=== PATIENT | female | born 1965 ===

== ENCOUNTER 2021-03-13 08:56 | Outpatient (CLI) | payer OTHER, SELFPAY ==
[2021-03-13 10:48] LABS: SARS-CoV-2 RNA PCR Negative (Negative)
[2021-03-13 11:28] LABS: SARS-CoV-2 Ag Negative (Negative)
== END 2021-03-13 08:57 | disposition home or self-care (01) ==
PROVIDERS: PCP Family Medicine; Visit Provider Family Medicine
DX: Z20.822 Contact with and (suspected) exposure to COVID-19 (principal)
CPT/HCPCS: 87426; C9803; U0003; U0005

== ENCOUNTER 2023-09-30 11:54 | Outpatient (CLI) | payer OTHER, SELFPAY ==
[2023-09-30 12:08] LABS: Basophils Absolute Auto 0.03 K/mm3 (0.00-0.10); Basophils Percent Auto 0.4 % (0.0-1.0); Eosinophils Absolute Auto 0.21 K/mm3 (0.02-0.50); Eosinophils Percent Auto 2.6 % (1.0-6.0); Hematocrit 49.8 % (35.0-49.0); Hemoglobin 16.3 g/dL (12.0-15.0); Immature Granulocyte Absolute 0.03 K/mm3 (0.00-0.00); Immature Granulocyte Percent A 0.4 % (0.0-0.0); Lymphocytes Absolute Auto 1.97 K/mm3 (1.10-4.50); Lymphocytes Percent Auto 24.3 % (18.0-42.0); Mean Corpuscular HGB Conc 32.7 g/dL (32-36); Mean Corpuscular Hemoglobin 31.7 pg (27.0-31.0); Mean Corpuscular Volume 96.7 fL (78.0-102.0); Mean Platelet Volume 11.4 fl (9.2-11.8); Monocytes Absolute Auto 0.45 K/mm3 (0.10-0.90); Monocytes Percent Auto 5.5 % (2.0-11.0); Neutrophils Absolute Auto 5.42 K/mm3 (1.70-7.20); Neutrophils Percent Auto 66.8 % (50.0-70.0); Platelet Count Result 171 K/mm3 (150-420); Red Blood Count 5.15 M/mm3 (4.20-5.40); Red Cell Distribution Width 12.2 % (11.6-14.4); White Blood Count 8.1 K/mm3 (4.8-10.8)
[2023-09-30 13:04] LABS: Alanine Aminotransferase 22 U/L (14-59); Albumin Level 3.6 g/dL (3.4-5.0); Alkaline Phosphatase 91 U/L (46-116); Anion Gap 6 mmol/L (4-12); Aspartate Amino Transferase 13 U/L (15-37); Bilirubin,Total 0.5 mg/dL (0.00-1.00); Blood Urea Nitrogen 18 mg/dL (7-18); Calcium 9.1 mg/dL (8.5-10.1); Carbon Dioxide 32 mmol/L (21-32); Chloride 105 mmol/L (98-108); Estimated Glomerular Filt Rate 56; Ferritin 75 ng/mL (8-252); Glucose 122 mg/dL (70-99); Iron 76 ug/dL (50-170); Osmolality Calculated 298 mOsm/kg (285-295); Percent Iron Saturation 22 % (12-57); Sodium 143 mmol/L (136-145); Total Protein 6.9 g/dL (6.4-8.2); Vitamin B12 548 pg/mL (193-986)
== END 2023-09-30 11:55 | disposition home or self-care (01) ==
LOC: CHSLAB 11:56
PROVIDERS: PCP Physician Assistant; Visit Provider Physician Assistant
DX: N17.9 Acute kidney failure, unspecified (principal); D64.9 Anemia, unspecified
CPT/HCPCS: 36415; 80053; 82607; 82728; 83540; 83550; 85025